=== PATIENT | male | born 1975 | race American Indian/Alaskan Native ===

== ENCOUNTER 2017-01-24 10:55 | Emergency (ER) | payer SELFPAY ==
[2017-01-24 11:34] VITALS: BP 141/99
[2017-01-24] MEDS ORDERED: FUL-GLO OP ONE ×2 (13:05→13:07)
[2017-01-24] MEDS ORDERED: TETRACAINE 0.5% OU PRN (13:11)
[2017-01-24] MEDS ORDERED: BSS OU ONE (13:11)
--- NOTE | 2017-01-24 13:16 | Emergency Department Report ---
Eye Injury/Foreign Body - HPI Tetanus Status: Up to Date Eye Symptoms: Eye Pain: Yes, Blurred Vision: Yes, Eye Redness: Yes, Grinding/ Hammering Metal: No, Used Eye Protection: No, Contact Lens Use: No, Recalls Injury: No, Photophobia: No Other History: Patient is a 41-year-old male presents to ED complaining of right eye redness and pain 3 days. Patient states also today he was out of town and when he got back candidiasis eye was red and since then has gotten progressively worse and itching. Patient denies trauma to that eye R eyes and injury. Patient states he feels an itching feeling on his right eye. Patient states clear drainage from her eye. Patient admits mild blurry vision but no loss of vision. Signed he denies fevers/chills/nausea/vomiting/URI ED Review of Systems ROS: Stated complaint: EYE PROBLEMS Other details as noted in HPI Constitutional: denies: chills, fever Eyes: denies: eye pain, eye discharge, vision change ENT: denies: ear pain, throat pain Respiratory: denies: cough, shortness of breath, wheezing Cardiovascular: denies: chest pain, palpitations Endocrine: no symptoms reported Gastrointestinal: denies: abdominal pain, nausea, diarrhea Genitourinary: denies: urgency, dysuria Musculoskeletal: denies: back pain, joint swelling, arthralgia Skin: denies: rash, lesions Neurological: denies: headache, weakness, paresthesias Psychiatric: denies: anxiety, depression Hematological/Lymphatic: denies: easy bleeding, easy bruising ED Past Medical Hx - Past Medical History Previous Medical History?: No - Surgical History Past Surgical History?: Yes Additional Surgical History: Rt Knee Surgery - Social History Smoking Status: Current Every Day Smoker Substance Use Type: Alcohol, Marijuana, Other - Medications Home Medications: Home Medications Medication Instructions Recorded Confirmed Last Taken Type Cyclobenzaprine [Flexeril] 10 mg PO TID PRN #14 tablet 12/25/13 Unknown Rx Naproxen [Naprosyn] 500 mg PO BID #20 tablet 12/25/13 Unknown Rx Ibuprofen [Motrin] 800 mg PO Q8HR PRN #20 tablet 01/24/17 Unknown Rx Polymyxin B Sulf/Trimethoprim 1 - 2 drop OP QID #10 ml 01/24/17 Unknown Rx [Polytrim Eye Drops [id number]/0.1%] Eye Injury Exam - Exam General: Vital signs noted. No distress. Alert and acting appropriately. GENERAL: Alert and oriented x3, no apparent distress, Normal Gait, atraumatic. HEAD: Head is normocephalic and a-traumatic. EYES: Extra ocular muscles are intact. Pupils are equal, round, and reactive to light and accommodation. Right eye sclera erythematous, right upper and lower conjunctiva inflamed and mildly swollen. No corneal abrasion seen under almaraz lamp. Acuity testing done - normal NOSE: Nose symetrical, Nontender,Nares appeared normal. LUNGS: Symetrical with respiration, No wheezing, no rales or crackles, CTAB. HEART: S1, S2 present, regular rate and rhythm without murmur, no rubs, no gallops. SKIN: Warm and dry, No lesions, No ulceration or induration present. ED Course Vital Signs 01/24/17 11:30 Temperature 98.8 F Pulse Rate 56 L Respiratory 20 Rate Blood Pressure 141/99 O2 Sat by Pulse 100 Oximetry ED Medical Decision Making - Medical Decision Making 41-year-old male presents with conjunctivitis to right eye ED course: Almaraz lamp Almaraz lamp test done, visual acuity test done. Flap was negative no fluorescein uptake in the cornea Discussed findings with patient. Discussed antibiotic drops 3-4 times a day. Discussed the patient can take Motrin as needed for pain. Discussed the patient follow up with eye doctor has referred. Vital signs are normal patient is in no acute restraint distress. Discussed conjunctivae is May last up to 2 weeks - Differential Diagnosis 1.conjunctivitis 2. Blepharitis 3. Iritis 4. Corneal abrasion Critical care attestation.: If time is entered above; I have spent that time in minutes in the direct care of this critically ill patient, excluding procedure time. ED Disposition Clinical Impression: Conjunctivitis of right eye Qualifiers: Conjunctivitis type: acute Acute conjunctivitis type: unspecified Qualified Code(s): H10.31 - Unspecified acute conjunctivitis, right eye Disposition: DISCHARGED TO HOME OR SELFCARE Is pt being admited?: No Does the pt Need Aspirin: No Condition: Stable Instructions: Conjunctivitis (ED), Iritis (ED) Prescriptions: Ibuprofen [Motrin] 800 mg PO Q8HR PRN #20 tablet PRN Reason: Pain Polymyxin B Sulf/Trimethoprim [Polytrim Eye Drops [id number]/0.1%] 1 - 2 drop OP QID #10 ml Referrals: PRIMARY CARE, [Primary Care Provider] - 3-5 Days HIRA HAWKINS MD [Staff Physician] - 3-5 Days [facility] [Outside] - 3-5 Days [facility] [Outside] - 3-5 Days [facility] [Outside] - 3-5 Days Forms: Work/School Release Form(ED) Time of Disposition: 13:39
== END 2017-01-24 14:15 | disposition home or self-care (01) ==
LOC: ED 10:55
DX: H10.31 Unspecified acute conjunctivitis, right eye (principal); F17.200 Nicotine dependence, unspecified, uncomplicated; F12.90 Cannabis use, unspecified, uncomplicated
CPT/HCPCS: 99283